=== PATIENT | female | born 1985 | race Caucasian/White ===

== ENCOUNTER 2018-01-07 22:11 | Emergency (ER) | payer OTHER | END 2018-01-07 23:14 | disposition home or self-care (01) | LOC: E/R 22:11 | DX: O99.89 Other specified diseases and conditions complicating pregnancy, childbirth and the puerperium (principal); M54.5 Low back pain; O10.013 Pre-existing essential hypertension complicating pregnancy, third trimester; O99.513 Diseases of the respiratory system complicating pregnancy, third trimester; J45.909 Unspecified asthma, uncomplicated; Z3A.28 28 weeks gestation of pregnancy | CPT/HCPCS: 99282; Z7502 ==

== ENCOUNTER 2018-01-07 23:19 | Outpatient (CLI) | payer OTHER ==
[2018-01-08] MEDS: ACETAMINOPHEN 325 MG TAB PO (00:17)
== END 2018-01-08 00:45 | disposition home or self-care (01) ==
LOC: OBT 23:19 → L-D 23:22
DX: O9A.212 Injury, poisoning and certain other consequences of external causes complicating pregnancy, second trimester (principal); Z3A.27 27 weeks gestation of pregnancy; V43.52XA Car driver injured in collision with other type car in traffic accident, initial encounter; Y92.410 Unspecified street and highway as the place of occurrence of the external cause; O34.219 Maternal care for unspecified type scar from previous cesarean delivery
CPT/HCPCS: Z7500

== ENCOUNTER 2018-03-29 06:04 | Inpatient (IN) | payer OTHER ==
[2018-03-29] MEDS ORDERED: METHYLERGONOVINE 0.2 MG INJ IM ×2 (06:30→10:00)
[2018-03-29] MEDS ORDERED: OXYTOCIN 30 UNITS/LR 500 ML IV ×2 (06:30→10:00)
[2018-03-29] MEDS ORDERED: MISOPROSTOL 200 MCG TAB PR ×2 (06:30→10:00)
[2018-03-29] MEDS ORDERED: CARBOPROST 250 MCG INJ IM ×2 (06:30→10:00)
[2018-03-29] MEDS: LACTATED RINGER'S 1,000 ML IV ×3 (06:36→22:49)
[2018-03-29] MEDS ORDERED: OXYTOCIN 30 UNITS/LR 500 ML BAG IV (07:00)
[2018-03-29 07:15] LABS: ADD MAN DIFF? NO
[2018-03-29 07:17] LABS: WHITE BLOOD COUNT 7.3 10^3/ul (4.8-10.8)
[2018-03-29 07:17] LABS: BASOPHILS % 0.3 % (0.0-2.0); EOSINOPHILS # 0.1 10^3/ul (0.0-0.5); EOSINOPHILS % 0.7 % (0.0-7.0); HEMATOCRIT 29.5 % (37.0-47.0); HEMOGLOBIN 9.7 g/dl (12.0-16.0); LYMPHOCYTES % 27.2 % (15.0-51.0); MEAN CORPUSCULAR HEMOGLOBIN 26.1 pg (29.0-33.0); MEAN CORPUSCULAR HGB CONC 32.9 g/dl (32.0-37.0); MEAN CORPUSCULAR VOLUME 79.5 fl (82.0-101.0); MEAN PLATELET VOLUME 12.2 fl (7.4-10.4); MONOCYTE # 0.4 10^3/ul (0.3-0.9); MONOCYTES % 5.9 % (0.0-11.0); NEUTROPHIL # 4.8 10^3/ul (1.6-7.5); NEUTROPHILS % 65.8 % (39.0-77.0); PLATELET COUNT 218 10^3/UL (140-415); RED BLOOD COUNT 3.71 10^6/ul (4.20-5.40)
[2018-03-29 07:37] LABS: PARTIAL THROMBOPLASTIN TIME 26.6 Sec (25.0-35.0); PROTIME 12.2 Sec (11.9-14.9)
[2018-03-29] MEDS ORDERED: PHENYLephrine (100 MCG/ML) 5ML SYG ×2 (07:45→09:01)
[2018-03-29] MEDS ORDERED: OXYTOCIN 10 UNIT INJ (07:45)
[2018-03-29] MEDS ORDERED: ONDANSETRON 4 MG INJ (07:45)
[2018-03-29] MEDS ORDERED: morphine SULFATE/PF (10 MG/10 ML) INJ (07:45)
[2018-03-29] MEDS ORDERED: BUPIVACAINE 0.75%/DEXT (SPINAL) 2 ML INJ (07:49)
[2018-03-29] MEDS ORDERED: FENTAnyl 50 MCG/ML VIAL ×4 (07:50→09:16)
[2018-03-29] MEDS: CLINDAMYCIN 900 MG/D5W (PMX) 50 ML IV ×2 (08:00→09:04)
[2018-03-29] MEDS ORDERED: METHYLENE BLUE 1% 10 ML INJ (08:22)
[2018-03-29] MEDS ORDERED: DIPHENHYDRAMINE 50 MG INJ IV ×2 (08:30→10:30)
[2018-03-29] MEDS ORDERED: ZOLPIDEM 5 MG TAB PO (08:30)
[2018-03-29] MEDS ORDERED: ONDANSETRON 4 MG INJ IV ×3 (08:30→10:30)
[2018-03-29] MEDS ORDERED: NALOXONE (0.4 MG/ML) INJ IV ×2 (08:30→10:30)
[2018-03-29] MEDS ORDERED: HYDROmorphONE 0.5 MG/0.5 ML SYG IV ×2 (08:30)
[2018-03-29] MEDS ORDERED: MIDAZOLAM 1 MG/ML 2 ML INJ (08:57)
[2018-03-29] MEDS: GENTAMICIN IVPB ×2 (09:00→12:19)
[2018-03-29] MEDS: GENTAMICIN 80 MG/NS (PMX) 50 ML IVPB (09:00)
[2018-03-29] MEDS: SOD CHLORIDE 0.9% IVPB ×2 (09:00→12:19)
[2018-03-29] MEDS ORDERED: KETAMINE (100 MG/ML) 5 ML VIAL (09:24)
[2018-03-29] MEDS ORDERED: BENZOCAINE 20% 56 ML SPRAY TOP (10:00)
[2018-03-29] MEDS ORDERED: NACL 0.9% 3 ML SYG IV (10:00)
[2018-03-29] MEDS ORDERED: DIBUCAINE 1% 30 GM OINT PR (10:00)
[2018-03-29] MEDS ORDERED: WITCH HAZEL/GLYCERIN PAD PR (10:00)
[2018-03-29] MEDS ORDERED: SENNA/DOCUSATE NA (8.6MG/50MG) TAB PO (10:00)
[2018-03-29] MEDS: KETOROLAC 30 MG INJ IV ×2 (10:09→21:37)
[2018-03-29] MEDS: morphine 2 MG INJ IV (10:11)
[2018-03-29] MEDS ORDERED: CLINDAMYCIN 900 MG/D5W (PMX) 50 ML IVPB (11:00)
[2018-03-29] MEDS: CEFAZOLIN 2 GM/50 ML (PMX) 50 ML IVPB ×2 (11:58→21:32)
[2018-03-29] MEDS: IBUPROFEN 600 MG TAB PO ×2 (12:00→18:00)
[2018-03-29] MEDS: OXYTOCIN 30 UNITS/LR 500 ML IV ×2 (12:14→18:04)
[2018-03-29 12:27] LABS: ADD MAN DIFF? NO
[2018-03-29 12:31] LABS: BASOPHILS % 0.2 % (0.0-2.0); EOSINOPHILS % 0.1 % (0.0-7.0); HEMATOCRIT 30.8 % (37.0-47.0); HEMOGLOBIN 10.2 g/dl (12.0-16.0); LYMPHOCYTES # 1.4 10^3/ul (0.8-2.9); LYMPHOCYTES % 8.9 % (15.0-51.0); MEAN CORPUSCULAR HEMOGLOBIN 26.3 pg (29.0-33.0); MEAN CORPUSCULAR HGB CONC 33.1 g/dl (32.0-37.0); MEAN CORPUSCULAR VOLUME 79.4 fl (82.0-101.0); MONOCYTE # 0.7 10^3/ul (0.3-0.9); MONOCYTES % 4.2 % (0.0-11.0); NEUTROPHIL # 13.5 10^3/ul (1.6-7.5); NEUTROPHILS % 86.2 % (39.0-77.0); PLATELET COUNT 225 10^3/UL (140-415); RED BLOOD COUNT 3.88 10^6/ul (4.20-5.40)
[2018-03-29 12:31] LABS: WHITE BLOOD COUNT 15.7 10^3/ul (4.8-10.8)
[2018-03-29 16:57] LABS: RAPID PLASMA REAGIN NONREACTIVE (NR)
[2018-03-29] MEDS: CLINDAMYCIN 900 MG/D5W (PMX) 50 ML IVPB (18:01)
[2018-03-29] MEDS: LABETALOL 100 MG TAB PO (21:31)
[2018-03-29] MEDS: SENNA/DOCUSATE NA (8.6MG/50MG) TAB PO (21:32)
[2018-03-29] MEDS: LANOLIN 7 GM TUBE TOP (22:49)
[2018-03-30] MEDS: CLINDAMYCIN 900 MG/D5W (PMX) 50 ML IVPB ×2 (00:07→08:16)
[2018-03-30] MEDS: ALBUTEROL HFA 8 GM INHALER INH (02:03)
[2018-03-30] MEDS: CEFAZOLIN 2 GM/50 ML (PMX) 50 ML IVPB (05:43)
[2018-03-30] MEDS: IBUPROFEN 600 MG TAB PO ×5 (06:00→23:43)
[2018-03-30] MEDS: KETOROLAC 30 MG INJ IV (06:26)
[2018-03-30] MEDS: LACTATED RINGER'S 1,000 ML IV ×2 (08:15→14:00)
[2018-03-30] MEDS: SENNA/DOCUSATE NA (8.6MG/50MG) TAB PO ×2 (08:16→20:08)
[2018-03-30] MEDS: LABETALOL 100 MG TAB PO ×2 (08:21→20:09)
[2018-03-30] MEDS: OXYCODONE/ASPIRIN (4.88/325) TAB PO ×2 (11:55→20:09)
[2018-03-30 12:20] LABS: ADD MAN DIFF? NO
[2018-03-30 12:24] LABS: WHITE BLOOD COUNT 9.7 10^3/ul (4.8-10.8)
[2018-03-30 12:24] LABS: BASOPHILS % 0.1 % (0.0-2.0); HEMATOCRIT 26.3 % (37.0-47.0); HEMOGLOBIN 8.7 g/dl (12.0-16.0); LYMPHOCYTES # 0.9 10^3/ul (0.8-2.9); MEAN CORPUSCULAR HGB CONC 33.1 g/dl (32.0-37.0); MEAN CORPUSCULAR VOLUME 78.7 fl (82.0-101.0); MEAN PLATELET VOLUME 11.9 fl (7.4-10.4); MONOCYTE # 0.9 10^3/ul (0.3-0.9); MONOCYTES % 9.2 % (0.0-11.0); NEUTROPHIL # 7.9 10^3/ul (1.6-7.5); NEUTROPHILS % 81.3 % (39.0-77.0); PLATELET COUNT 220 10^3/UL (140-415); RED BLOOD COUNT 3.34 10^6/ul (4.20-5.40)
[2018-03-30] MEDS: IOHEXOL 300MG/ML 30 ML BTL (14:50)
[2018-03-30] MEDS: SOD CHLORIDE 0.9% 500 ML (14:51)
[2018-03-30] MEDS: FERROUS SULFATE (EC) 325 MG TAB PO (20:08)
[2018-03-30] MEDS ORDERED: FERROUS SULFATE (EC) 325 MG TAB PO (21:00)
[2018-03-31] MEDS: IBUPROFEN 600 MG TAB PO ×4 (05:44→23:41)
[2018-03-31] MEDS: LABETALOL 100 MG TAB PO ×2 (08:18→21:11)
[2018-03-31] MEDS: FERROUS SULFATE (EC) 325 MG TAB PO ×2 (08:19→21:10)
[2018-03-31] MEDS: SENNA/DOCUSATE NA (8.6MG/50MG) TAB PO ×2 (08:19→21:10)
[2018-03-31] MEDS ORDERED: FERROUS GLUCONATE (EC) 325 MG TAB PO (21:00)
[2018-04-01] MEDS: IBUPROFEN 600 MG TAB PO ×3 (06:00→18:00)
[2018-04-01] MEDS: LABETALOL 100 MG TAB PO (08:52)
[2018-04-01] MEDS: SENNA/DOCUSATE NA (8.6MG/50MG) TAB PO (08:52)
[2018-04-01] MEDS: FERROUS SULFATE (EC) 325 MG TAB PO (08:53)
== END 2018-04-01 18:53 | disposition home or self-care (01) | DRG 765 ==
LOC: L-D 06:04 → PP1 08:03 → L-D 08:04 → PP1 13:16
PROVIDERS: Obstetrics & Gynecology
PROC: 10D00Z1 Extraction of Products of Conception, Low, Open Approach (ICD-10-PCS; principal; 2018-03-29 07:30)
PROC: 0UT70ZZ Resection of Bilateral Fallopian Tubes, Open Approach (ICD-10-PCS; 2018-03-29 07:30)
PROC: 3E033VJ Introduction of Other Hormone into Peripheral Vein, Percutaneous Approach (ICD-10-PCS; 2018-03-29 07:30)
DX: O34.211 Maternal care for low transverse scar from previous cesarean delivery (principal); O10.92 Unspecified pre-existing hypertension complicating childbirth; O99.89 Other specified diseases and conditions complicating pregnancy, childbirth and the puerperium; N73.6 Female pelvic peritoneal adhesions (postinfective); D64.9 Anemia, unspecified; Z30.2 Encounter for sterilization; Z3A.39 39 weeks gestation of pregnancy; Z37.0 Single live birth
CPT/HCPCS: 72192; 85025; 85610; 85730; 86592; 86850; 86900; 86901; 86920; 88302; 99464